=== PATIENT | female | born 1985 | race Caucasian/White ===

== ENCOUNTER 2021-05-30 18:41 | Emergency (ER) | payer OTHER ==
[~2021-05-30 18:41] MED LIST: NAPROSYN500 MG PO; NORCO 7.5-3251 EACH PO; NORFLEX 100 MG100 MG PO; PREDNISONE 50 M50 MG PO
[2021-05-30 19:36] LABS: HEMOGLOBIN 9.1 gm/dl (12.3-15.3); WHITE BLOOD COUNT 8.3 K/UL (4.5-11.0)
[2021-05-30 20:15] LABS: BUN/CREATININE RATIO 10 (0-10)
[2021-05-30] MEDS ORDERED: ZOFRAN ODT 4 MG4 MG SL (22:01)
[2021-05-30] MEDS ORDERED: OMNICEF 300 MG300 MG PO (22:02)
== END 2021-05-30 22:40 | disposition home or self-care (01) ==
LOC: ER1 18:41
PROVIDERS: Physician Assistant Medical
DX: N12 Tubulo-interstitial nephritis, not specified as acute or chronic (principal); E87.6 Hypokalemia; Z20.822 Contact with and (suspected) exposure to COVID-19
CPT/HCPCS: 71045; 80053; 81001; 83605; 83735; 84100; 84703; 85025; 87040; 87077; 87086; 87186; 93005; 99285; J0696; J2405; Q9967; U0002